=== PATIENT | male | born 1960 | race Caucasian/White ===

== ENCOUNTER 2024-12-28 11:52 | Day surgery (SDC) | payer OTHER ==
[2024-12-28] VITALS (8 sets, daily range): BP systolic 142–161; BP diastolic 88–99
[~2024-12-28] VITALS: Ht 182.9 cm; Wt 85.0 kg
[~2024-12-28 11:52] MED LIST: ALPR1 PO; Aspir 8181 MG PO; CELE200 PO; CeFAZolin Sodium 2,000 MG in NS 100 ML IV SCH; Cialis5 MG PO; IMIQUIMOD1 EACH; LISI20 PO; REPATHA SU140 MG/1 M SC; ZOLP12.5 PO; ZYRTEC10 M1 PO
[2024-12-28] MEDS ORDERED: Bupivacaine 0.5% W/EPI 1:200000 SDV 30 ML Vial ONE (14:09)
[2024-12-28] MEDS ORDERED: FentaNYL Citrate 50 MCG/ML 2 ML Injection ONE (14:22)
[2024-12-28] MEDS ORDERED: Midazolam HCl 1MG / ML 2ML Vial ONE (14:22)
[2024-12-28] MEDS ORDERED: Rocuronium Bromide 10 MG/ML 5ML Injection IV ONE (14:25)
[2024-12-28] MEDS ORDERED: Dexamethasone Sod Phos 10 MG/ML 1ML VIAL ONE (14:34)
[2024-12-28] MEDS ORDERED: Ondansetron HCl 2 MG / ML 2ML Vial ONE (14:34)
[2024-12-28] MEDS ORDERED: LORazepam 2 MG/ML 1ML Injection IV PRN (14:40)
[2024-12-28] MEDS ORDERED: Prochlorperazine Edisylate 10 mg Vial IV PRN (14:45)
[2024-12-28] MEDS ORDERED: HYDROmorphone HCl/Pf 1MG SYR IV PRN ×2 (14:45→14:50)
[2024-12-28] MEDS ORDERED: FentaNYL Citrate 50 MCG/ML 2 ML Injection IV PRN ×2 (14:45)
[2024-12-28] MEDS ORDERED: HydrALAZINE HCl 20 MG / ML 1ML Vial IV PRN (14:45)
[2024-12-28] MEDS ORDERED: Labetalol HCL 5 MG/ML 4ML Injection (Single Dose) IV PRN (14:45)
[2024-12-28] MEDS ORDERED: Ondansetron HCl 2 MG / ML 2ML Vial IV PRN (14:45)
[2024-12-28] MEDS ORDERED: Sugammadex Sodium 200 MG/2ML SDV (100 MG/ML) ONE (15:48)
[2024-12-28] MEDS ORDERED: OxyCODONE 5 mg/Acetamin 325 mg TABLET PO PRN (16:20)
--- NOTE | 2024-12-28 17:22 | NUR ---
Patient up to [employer] independently. Gait steady. Discharge instructions reviewed with patient. Patient verbalizes understanding. Copy given to patient to take home. Discharged via wheelchair to private car for ride home.
== END 2024-12-28 17:15 | disposition home or self-care (01) ==
LOC: ORSCMMR 11:52 → ORD 13:15 → ORSCMMR 17:15
PROVIDERS: Surgery
PROC: 0WUF4JZ Supplement Abdominal Wall with Synthetic Substitute, Percutaneous Endoscopic Approach (ICD-10-PCS; principal; 2024-12-28 13:15)
PROC: 8E0W4CZ Robotic Assisted Procedure of Trunk Region, Percutaneous Endoscopic Approach (ICD-10-PCS; principal; 2024-12-28 13:15)
PROC: 0YU54JZ Supplement Right Inguinal Region with Synthetic Substitute, Percutaneous Endoscopic Approach (ICD-10-PCS; principal; 2024-12-28 13:15)
PROC: 3E023BZ Introduction of Anesthetic Agent into Muscle, Percutaneous Approach (ICD-10-PCS; principal; 2024-12-28 13:15)
DX: K40.30 Unilateral inguinal hernia, with obstruction, without gangrene, not specified as recurrent (principal); K45.0 Other specified abdominal hernia with obstruction, without gangrene; I10 Essential (primary) hypertension; E78.5 Hyperlipidemia, unspecified; I25.10 Atherosclerotic heart disease of native coronary artery without angina pectoris; Z79.82 Long term (current) use of aspirin; Z79.899 Other long term (current) drug therapy
CPT/HCPCS: A9270; C1781; J0690; J1100; J2250; J2405; J2704; J3010; J7120